=== PATIENT | male | born 1985 | race Two or more races ===

== ENCOUNTER → 2017-03-04 | Outpatient (CLI) | payer OTHER ==
[~2017-03-04] MED LIST: GABA600T PO; TYLETAB15 PO; zanaflex OR
--- NOTE | 2017-03-05 09:37 | REP ---
RIGHT ANKLE SERIES, COMPLETE: 03/04/2017. Clinical history: Pain. Comparison: Right foot series this date. Findings: Four view show the mortise joint symmetric and preserved. No talar dome osteochondral defect. There is no avulsion or fracture about the distal tibia and fibula. Subtalar joints are intact and no heel spurs. Talus, calcaneus, their articulations with the tarsal bones were all intact. No avulsion or fracture. Impression: 1. Negative right ankle series for fracture, disruption of the mortise joint or other acute finding. Signed by Nura Chaves MD 03/05/2017 07:47 P
--- NOTE | 2017-03-05 09:38 | REP ---
RIGHT FOOT COMPLETE: 03/04/2017. Clinical history: Right foot pain. Comparison: Right ankle series this date. Findings four views of the right foot, attention to the midfoot were most symptomatic region is. MTP and IP joints are intact and no fracture avulsions of the metacarpals or phalanges. Tarsal bones and their articulations show no fracture or focal lesion. Minor soft tissue swelling dorsal aspect of the foot. Talonavicular and calcaneocuboid joints were intact. No heel spurs or focal lesions in the hind foot. Impression: 1. No visible fracture, avulsion, erosion, subluxation or other acute bony finding about the foot. Signed by Nura Chaves MD 03/05/2017 07:48 P
== END ==
LOC: M LRY 19:55
PROVIDERS: ATTEND Nurse Practitioner Family
DX: M79.671 Pain in right foot (principal)
CPT/HCPCS: 73610; 73630; 96372; G0463; J1885

== ENCOUNTER 2017-09-28 17:45 | Emergency (ER) | payer OTHER ==
[2017-09-28] MEDS: METHOCARBAMOL 500 MG TAB PO (19:30)
[2017-09-28] MEDS: KETOROLAC 60 MG/2 ML VIAL (J1885) IM (19:30)
== END 2017-09-28 19:32 | disposition home or self-care (01) ==
LOC: M ED 17:45
DX: S16.1XXA Strain of muscle, fascia and tendon at neck level, initial encounter (principal); M50.33 Other cervical disc degeneration, cervicothoracic region; M50.13 Cervical disc disorder with radiculopathy, cervicothoracic region; Y04.8XXA Assault by other bodily force, initial encounter; Y92.481 Parking lot as the place of occurrence of the external cause; Y93.9 Activity, unspecified; Y99.1 Military activity; Z79.899 Other long term (current) drug therapy
CPT/HCPCS: J1885